=== PATIENT | female | born 1975 | race Caucasian/White ===

== ENCOUNTER 2021-11-16 06:27 | Emergency (ER) | payer OTHER ==
[2021-11-16 07:30] LABS: HEMOGLOBIN 15.4 gm/dl (12.3-15.3); RED BLOOD COUNT 5.04 M/UL (4.00-5.10); WHITE BLOOD COUNT 15.8 K/UL (4.5-11.0)
[2021-11-16] MEDS ORDERED: IBUPROFEN600 MG PO (07:46)
[2021-11-16] MEDS ORDERED: AMOX TR-K CLV1 EAC4 PO (07:46)
== END 2021-11-16 08:38 | disposition home or self-care (01) ==
LOC: ER1 06:27
PROVIDERS: Nurse Practitioner
DX: K04.7 Periapical abscess without sinus (principal); K02.9 Dental caries, unspecified; F17.210 Nicotine dependence, cigarettes, uncomplicated
CPT/HCPCS: 85025; 99283; J1885